=== PATIENT | male | born 1930 | race Caucasian/White ===

== ENCOUNTER 2017-02-22 09:46 | Inpatient (IN) ==
--- NOTE | 2017-02-22 10:52 | CT Report ---
CT of the head without contrast. Indication: Fall, injury, and pain. Altered level of consciousness. Comparison: November 15, 2015. There is calcific plaque present within the intracranial internal carotid arteries and the vertebral arteries. There is generalized prominence of the ventricles and sulci consistent with atrophy of aging. There is a cavum septum lucidum. Within the right middle cranial fossa, there is a prominent area of arachnoid cyst or cystic encephalomalacia, which is similar to the previous exam. There is no mass effect or midline shift. There is no evidence of acute hemorrhage. No cortical infarcts are seen at this time. Within the white matter of both cerebral hemispheres, there are areas of low density consistent with chronic microvascular ischemia. 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 There are small lacunar infarcts in the left basal ganglia, stable. The osseous structures are diffusely demineralized. The calvarium is intact. The mastoid air cells are clear. Mild mucosal thickening and mucus debris within the paranasal sinuses. Impression: No evidence of acute intracranial injury. Chronic atrophy and ischemic change, stable. 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 The CT exam was performed using one or more of the following dose reduction techniques: Automated exposure control, adjustment of the mA and/or kV according to patient size, or use of iterative reconstruction technique. PROCEDURE INTERPRETED AT [facility] DEPARTMENT OF RADIOLOGY Final Report Signed by: Dr. Naomi Bourne
--- NOTE | 2017-02-22 10:55 | CT Report ---
History: Neck pain after fall Date: 02/22/2017 Study: CT cervical spine without contrast Comparison exam: January 08, 2014 CT cervical spine Thin spiral CT sections were obtained through the cervical spine without IV contrast. Multiplanar reconstruction images are also evaluated. This CT exam was performed using one or more the following dose reduction techniques: Automated exposure control, adjustment of the MA and/or KV according to patient size, or use of iterative reconstruction technique. There is no acute fracture, subluxation, or prevertebral soft tissue swelling. There is scattered mild to moderate anterior spondylosis of the spine. The cervical disc spaces are fairly well-maintained. There is scattered facet hypertrophy. There is mild spinal stenosis at C3-C4 related to mild posterior bulging disc and osteophyte; there is mild to moderate bony neural foraminal narrowing related to uncovertebral and facet hypertrophy. There is mild to moderate right greater than left neural foraminal narrowing at C4-C5 related to uncovertebral and facet hypertrophy. There is moderate right and mild left neural foraminal narrowing at C5-C6 related to uncovertebral and facet hypertrophy. There is mild neural foraminal narrowing bilaterally at C6-C7 related to uncovertebral and facet hypertrophy. There is no cervical level soft tissue mass identified. Impression: No fracture. Degenerative changes. Little overall change from the previous study PROCEDURE INTERPRETED AT [facility] DEPARTMENT OF RADIOLOGY Final Report Signed by: Dr. Moon Murphy
--- NOTE | 2017-02-22 10:57 | CT Report ---
CT of the lumbar spine without contrast. Indication: Back pain. Fall, injury, and pain. Axial images were obtained with sagittal and coronal 2-D reconstructions. There is atherosclerotic calcification within a normal caliber abdominal aorta, extending into the origins of the SMA, both renal arteries, and both common and internal iliac arteries. Suspected cysts within the left kidney. Suspected right nephrolithiasis. Diverticulosis. The osseous structures are severely demineralized. There is vacuum disc phenomenon, degenerative endplate change, and anterior and posterior osteophyte formation at L5-S1, with prominent neural foraminal narrowing. At L4-L5, there is posterior lateral osteophyte formation resulting in moderate neural foraminal narrowing. There are chronic superior endplate compression fractures, involving L1 and L2, which are similar in configuration to a previous CT of the abdomen and pelvis dated September 09, 2013. No lytic or blastic lesion. Multilevel facet arthropathy. Impression: No evidence of acute lumbar spine fracture. Chronic stable superior endplate compression fractures of L1 and L2. The CT exam was performed using one or more of the following dose reduction techniques: Automated exposure control, adjustment of the mA and/or kV according to patient size, or use of iterative reconstruction technique. PROCEDURE INTERPRETED AT [facility] DEPARTMENT OF RADIOLOGY Final Report Signed by: Dr. Naomi Bourne
--- NOTE | 2017-02-22 10:59 | CT Report ---
History: Back pain after fall Date: 02/22/2017 Study: CT thoracic spine without contrast Comparison exam: No previous thoracic spine CT available Thin spiral CT sections were obtained through the thoracic spine without IV contrast. Multiplanar reconstruction images are also evaluated. This CT exam was performed using one or more the following dose reduction techniques: Automated exposure control, adjustment of the MA and/or KV according to patient size, or use of iterative reconstruction technique. There is a Schmorl's nodes superiorly at T5 with mild central depression of the superior endplate, presumably chronic. No definite acute thoracic fracture is seen. There is no subluxation. There is scattered moderate spondylosis with suspected element of DISH. There is no focal lytic or blastic lesion. There is no gross disc extrusion or high-grade spinal stenosis. Impression: Chronic Schmorl's nodes superiorly at T5. No definite acute fracture. Suspected element of DISH PROCEDURE INTERPRETED AT [facility] DEPARTMENT OF RADIOLOGY Final Report Signed by: Dr. Moon Murphy
--- NOTE | 2017-02-22 11:07 | XRay Report ---
History: Right hip pain after fall Date: 02/22/2017 Study: Right hip 2 views to include pelvis Comparison exam: No previous similar available No acute fracture seen by this exam. The right hip is well conjugated. There is mild osteophyte formation of the right hip, though the joint space is well-maintained. There is an old healed fracture of the left hip status post ORIF with compression screw and plate. There is osteopenia. Impression: No acute fracture. Mild osteoarthritis right hip. Old healed left hip fracture status post previous ORIF PROCEDURE INTERPRETED AT [facility] DEPARTMENT OF RADIOLOGY Final Report Signed by: Dr. Moon Murphy
--- NOTE | 2017-02-22 11:10 | XRay Report ---
History: Posterior rib pain on the right after fall Date: 02/22/2017 Study: PA chest with AP and oblique views right RIBS Comparison exam: Chest x-ray November 15, 2015 There is no pneumothorax or gross pleural effusion. There is old fracture deformity of the anterolateral aspects of the right fourth and fifth ribs. No definite acute rib fractures seen on the right. There is osteopenia. There is mild to moderate thoracic spondylosis. The cardiac silhouette is not enlarged. There is mild ectasia and tortuosity of the thoracic aorta without obvious aneurysm. The lungs are well-expanded and clear. Impression: No acute right rib fracture. Multiple old healed rib fractures on the right. No acute process otherwise PROCEDURE INTERPRETED AT [facility] DEPARTMENT OF RADIOLOGY Final Report Signed by: Dr. Moon Murphy
--- NOTE | 2017-02-22 12:20 | CT Report ---
History: Right hip pain after fall Date: 02/22/2017 Study: CT right hip without contrast Comparison exam: Right hip x-ray 02/22/[address] sections were obtained through the right hip without IV contrast. Multiplanar reconstruction images are also evaluated. Total DLP measures 282.3 mGy*cm. This CT exam was performed using one or more the following dose reduction techniques: Automated exposure control, adjustment of the MA and/or KV according to patient size, or use of iterative reconstruction technique. There is a nondisplaced acute comminuted fracture of the greater trochanter of the right hip with near-anatomic alignment. No fracture plane traverses the femoral neck. There is mild joint space narrowing and osteophyte formation of the right hip joint. There is no significant abnormality otherwise. Impression: Acute nondisplaced comminuted fracture greater trochanter right hip PROCEDURE INTERPRETED AT [facility] DEPARTMENT OF RADIOLOGY Final Report Signed by: Dr. Moon Murphy
[2017-02-22 12:43] LABS: Basophils % 0.4 % (0.0-0.8); Eosinophils # 0.2 10*3/uL (0.0-0.87); Eosinophils % 2.5 % (0.00-10.9); Hematocrit 40.3 VOL% (42.0-52.0); Immature Granulocytes % 0.3 %; Immature Granulocytes Absolute 0.02 #; Lymphocytes # 1.3 10*3/uL (1.4-4.0); Lymphocytes % 17.6 % (21.2-54.2); Mean Corpuscular HGB Conc 34.7 GM/DL (32-36); Mean Corpuscular Hemoglobin 33 PG (27-34); Mean Corpuscular Volume 93.7 FL (87-102); Mean Platelet Volume 12.2 FL (9.6-12.0); Monocytes # 0.8 10*3/uL (0.11-0.8); Monocytes % 11.2 % (1.7-12.7); Neutrophils # 5.1 10*3/uL (1.4-7.4); Platelet Count 66 T/CUMM (130-400); Red Cell Distribution Width 13.7 % (9.3-17.3); White Blood Count 7.5 T/CUMM (4-12)
[2017-02-22] MEDS ORDERED: ONDANSETRON 4 MG/2 ML VIAL IV PRN (12:43)
--- NOTE | 2017-02-22 12:48 | EKG Report ---
Stationary ECG Study [facility] Test Date: 02/22/2017 12:46:31 PM Pat Name: NEDRA LLOYD Department: Room: Gender: M Toy Stuffer: : 1930 Requested by: Juliana King Order Number: [id number] Reading MD: GLORIA TEJEDA Intervals [place] Rate: 78 P: 999 AK: 0 QRS: 18 QRSD: 89 T: 51 QT: 396 QTc: 430 Interpretive Statements ATRIAL FIBRILLATION NONSPECIFIC T-WAVE ABNORMALITY Electronically Signed On 02-23-17 17:12:41 CDT by GLORIA TEJEDA [email or web address]
--- NOTE | 2017-02-22 13:06 | Emergency Department Note ---
Arrival - Arrival Chief Complaint: Fall Stated Complaint: fall hip pain ED Nursing Triage Note: SLIPPED AND FELL THIS AM APPROX 0630-C/O RIGHT HIP PAIN- NO OBVIOUS DEFORMITY-GOOD DISTAL PULSES-CAP REFILL BRISK-NEURO VASC IBTACT- DENIES HITTYING HEAD-DENIES LOC--SKIN TEAR NOTED TO RIGHT ELBOW-A/O X3 NAD Mode of Arrival: Stretcher Source: Patient, Family Time Seen by Provider: 02/22/17 09:59 - History of Present Illness HPI Narrative: 86 y/o white male presents to the ER per EMS complaining of right hip pain and back pain. States he tripped and fell this morning. Patient denies LOC. Reports pain with movement and weight-bearing. Also complaining of back pain. Past medical history significant for dementia, DM, HTN, GERD, and vertigo. Primary Care Physician: Dr. Colunga. Onset (ago): hour(s) (3) Severity: mild Quality: aching Allergies/Adverse Reactions: Allergies Allergy/AdvReac Type Severity Reaction Status Date / Time codeine Allergy Unknown/Unable Verified 12/31/14 13:18 to obtain Home Medications: Home Medications Medication Instructions Recorded Confirmed Type Melatonin/Pyridoxine HCl (B6) 1 each PO BEDTIME 12/31/14 02/22/17 History [Melatonin 10 mg Tablet] Multivitamin [One Daily] 1 each PO DAILY 12/31/14 02/22/17 History Pantoprazole Tab [Protonix Tab] 40 mg PO BID #30 tablet 01/06/15 02/22/17 Rx Aspirin 81 mg PO QPM 02/22/17 02/22/17 History Carbidopa/Levodopa 1 tablet PO TID 02/22/17 02/22/17 History [Carbidopa-Levodopa 25-100 Tab] Donepezil [Aricept] 10 mg PO BID 02/22/17 02/22/17 History Insulin NPH/Regular 70/30 [HumuLIN 32 unit SUBCUT QAM 02/22/17 02/22/17 History 70/30] Insulin NPH/Regular 70/30 [HumuLIN 40 unit SUBCUT QPM 02/22/17 02/22/17 History 70/30] Memantine [Namenda] 10 mg PO BID 02/22/17 02/22/17 History Metoprolol Succinate 25 mg PO DAILY PRN 02/22/17 02/22/17 History Review of System - Review of System 12 point system: reviewed and no additional remarkable complaints except as stated - Review of System Musculoskeletal: Present: back pain, other (right hip pain ) Medical,Surgical,& Family Hx - Medical History Neurology: History of: Dementia Genitourinary: History of: Kidney Stones Gastrointestinal: History of: Liver Problems (fatty liver) - Surgical History Cardiac Surgeries: Sugical HX of: Cardiac Catheterization (30 years ago) - Family History Family History: Reports;: Family Cancer (brother), Family Heart Disease (dad brother) - Social History Smoking Status: Never smoker Exam Vital Signs: Vital Signs Temperature 99.6 F 02/22/17 16:00 Pulse Rate 82 02/22/17 16:00 Respiratory Rate 18 02/22/17 16:00 Blood Pressure 129/68 02/22/17 16:00 O2 Sat by Pulse Oximetry 92 L 02/22/17 16:00 - General General appearance: alert, in no apparent distress - ENT ENT exam: Present: normal exam, normal oropharynx, mucous membranes moist - Chest Chest inspection: Present: normal inspection - Respiratory Respiratory exam: Present: normal lung sounds bilaterally - Cardiovascular Cardiovascular exam: Present: regular rate, normal rhythm, normal heart sounds - Abdominal Exam Abdominal exam: Present: soft, normal bowel sounds. Absent: tenderness - Extremities Exam Extremities exam: Present: full ROM - Expanded Lower Right Lower Hip/Pelvis exam: Present: tenderness (diffuse TTP to right hip; painful ROM of right hip ), pelvis stable. Absent: swelling, abrasion, erythema, internal rotation, shortening Neurovascular/Tendon exam: Present: normal capillary refill. Absent: pulse deficit, foot drop Gait: observed and limited by pain - Back Exam Back exam: Present: vertebral tenderness (cervicle, thoracic, and lumbar spine ) - Neurological Exam Neurological exam: Present: alert, oriented X3, other (DTR's intact bilaterally ) - Psychiatric Psychiatric exam: Present: normal affect, normal mood - Skin Skin exam: Present: warm, dry Course - Consultations Consultation #1: Hospitalist Time: 12:45 (Discussed with Hospitalist. Will admit. ) Results - Labs CBC & BMP: 02/22/17 12:29 02/22/17 12:29 Lab Results: I have reviewed the patients labs - Diagnostic Findings Procedure: Chest x-ray: image reviewed by me, report reviewed by me (no acute abnormality ), CT: image reviewed by me, report reviewed by me (Head, cervicle, thoracic, and lumbar spine: no acute fx. CT right hip: greater Trochanter fracture), X-ray: image reviewed by me, report reviewed by me (right hip: no acute fx ) Disposition Clinical Impression: Greater trochanter fracture, Fall Case discussed with: patient Disposition: Still a Patient Condition: Stable
[2017-02-22 13:10] LABS: Albumin 3.1 G/DL (3.4-5.0); Bilirubin,Total 1.9 MG/DL (0.2-1.0); Calcium 8.8 MG/DL (8.5-10.1); Osmolality,Calculated 282.3 MOS/KG (273-304); Total Protein 6.6 G/DL (6.4-8.3)
[2017-02-22 13:19] LABS: INR 1.2; PT Patient Result 12.9 SECS; Partial Thromboplastin Time 28.1 SECS (0-40)
--- NOTE | 2017-02-22 13:25 | Hospitalist History & Physical ---
<Lina Corcoranda - Last Filed: 02/22/17 13:15> Assessment and Plan (1) Greater trochanter fracture Status: Acute Assessment and plan: CT right hip without contrast significant for acute nondisplaced comminuted fracture greater trochanter right hip. Orthopedic consultation has been requested. We will order preop workup and preparations for surgical intervention. Current Visit: Yes (2) Type 2 diabetes mellitus Status: Acute Assessment and plan: We will order hemoglobin A1c and start Accu-Cheks with sliding scale coverage. Current Visit: No History of Present Illness Chief complaint: Right hip pain History of present illness: This is a pleasantly confused 86-year-old male that presented to the [facility] this morning via EMS for the evaluation of right hip pain. The patient has a medical history significant for dementia, fatty liver disease, left hip fracture, diabetes mellitus, hypertension, gastroesophageal reflux disease, and vertigo. Patient has a surgical history significant for cardiac catheterization and surgical repair of a fracture involving his left hip. Patient reported that he got out of bed and attempted to walk down the n[place]ira. Apparently, the patient made it to the doorway where he tripped and fell. His who was present at bedside reported that the patient generally does not get up early in the morning however , she was unsure of what prompted him to get off this morning. She reported that the patient suddenly jumped up and was observed seemingly running down the hallway ultimately falling in the doorway on his right side. She called for her family who live nearby. They summoned EMS in route and the patient was subsequently transferred to [facility] for further evaluation. The patient was assessed at the time of ED presentation. The patient was noted to be hypertensive with a blood pressure noted at 185/99. In addition the patient reported generalized pain and discomfort to his lower back. Right hip x -ray reported no acute fracture, mild osteoarthritis of the right hip, old healed left hip fracture status post previous open reduction with internal fixation. CT cervical spine without contrast was unremarkable for the presence of fracture however degenerative changes were noted. CT lumbar spine was unremarkable for any evidence of acute lumbar spine fracture however, stable superior endplate compression fractures of L1 and L2 were noted. CT thoracic spine without contrast reported chronic Schmorl's nodes superiorly at T5 and no definite acute fracture was noted however, there was a suspected element of DISH. X-ray of the right ribs with PA chest is unremarkable for the presence of any acute right rib fractures however, multiple old healed rib fractures on the right were noted. CT head without contrast was essentially unremarkable for any evidence of acute intracranial injury. Chronic atrophy and ischemic change and the presence of an arachnoid cyst versus cystic encephalomalacia of the right temporal lobe was noted. CT right hip without contrast was remarkable for the presence of an acute nondisplaced comminuted fracture of the greater trochanter involving the right hip. After brief discussion with TONG Geronimo and Dr. Guerra, the patient will be admitted to the hospitalist service for continuation of care. Dr. Primo Hayden , orthopedic surgeon has been requested by the family to assist during the clinical encounter. Home medications have been reviewed and reconciled. CODE STATUS discussed; patient is a FULL CODE. Home Medications Medication Instructions Recorded Confirmed Type Melatonin/Pyridoxine HCl (B6) 1 each PO BEDTIME 12/31/14 11/15/15 History [Melatonin 10 mg Tablet] Multivitamin [One Daily] 1 each PO DAILY 12/31/14 11/15/15 History metFORMIN [Glucophage] 500 mg PO BID W/MEALS 12/31/14 11/15/15 History Meclizine [Antivert] 25 mg PO TID PRN #1 tablet 01/06/15 11/15/15 Rx Metoprolol Succinate Xl [Toprol Xl] 100 mg PO DAILY #1 tablet 01/06/15 11/15/15 Rx Pantoprazole Tab [Protonix Tab] 40 mg PO BID #30 tablet 01/06/15 11/15/15 Rx glyBURIDE [Diabeta] 5 mg PO BID W/MEALS #60 tablet 01/06/15 11/15/15 Rx Allergies Allergy/AdvReac Type Severity Reaction Status Date / Time codeine Allergy Unknown/Unable Verified 12/31/14 13:18 to obtain Medical,Surgical,& Family Hx - Medical History Neurology: History of: Dementia Genitourinary: History of: Kidney Stones Gastrointestinal: History of: Liver Problems (fatty liver) - Surgical History Cardiac Surgeries: Sugical HX of: Cardiac Catheterization (30 years ago) - Family History Family History: Reports;: Family Cancer (brother), Family Heart Disease (dad brother) - Social History Smoking Status: Never smoker 12 point system: reviewed and no additional remarkable complaints except as stated Exam - Constitutional Vitals: Period Temp Pulse Resp BP Sys/Bar Pulse Ox Last 24 Hr 98.0 F 76-78 20-20 180-185/82-99 98 General appearance: normal weight, no acute distress - Head Head exam: Present: normal inspection, normocephalic, atraumatic - Eye Eye exam: Present: EOMI Pupils: Present: MIGUEL A. Absent: normal accommodation - ENT ENT exam: Present: normal exam, normal external ear exam, normal oropharynx - Neck Neck exam: Present: normal inspection. Absent: lymphadenopathy, meningismus, thyromegaly - Respiratory Respiratory exam: Present: clear to auscultation bilaterally. Absent: rales, rhonchi, stridor, wheezes - Cardiovascular Cardiovascular exam: Present: regular rate and rhythm. Absent: carotid bruit, diastolic murmur, gallop, JVD, rubs, systolic murmur - GI/Abdominal GI/Abdominal exam: Present: normal bowel sounds, soft - Extremities Exam Extremities exam: Present: full ROM. Absent: edema - Expanded Right Lower Hip exam: Present: normal inspection, tenderness. Absent: deformity Upper Leg exam: Present: normal inspection, tenderness. Absent: deformity Knee exam: Present: normal inspection, full ROM Lower leg exam: Present: normal inspection Ankle exam: Present: normal inspection Foot/Toe exam: Present: normal inspection Neuro vascular tendon exam: Present: no vascular compromise Gait: Present: not tested/not observed - Back Exam Back exam: Present: CVA tenderness (R) - Neurological Exam Neurological exam: Present: alert, altered - Psychiatric Psychiatric exam: Present: normal affect, normal mood - Skin Skin exam: Present: normal color, warm, dry Results - Labs CBC & BMP: 02/22/17 12:29 02/22/17 12:29 Lab Results: I have reviewed the past 24 hour labs <Michael Guerra - Last Filed: 02/22/17 14:45> Assessment and Plan (1) Greater trochanter fracture Status: Acute Assessment and plan: Impression: 1. Greater trochanteric fracture right hip 2. 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 Possible Parkinson's disease; could be a manifestation of #3 5. Thrombocytopenia, etiology not known. This appears to be chronic and apparently clinically insignificant Plan: Orthopedic consultation. Glucose control. He will be at higher than average risk for postop delirium due to his underlying dementia. His revised cardiac risk index is probably 1. This note was completed using [employer] voice recognition software. There may be fresh meat grader errors as a result. Current Visit: Yes Qualifiers: Encounter type: initial encounter Fracture type: closed Fracture alignment: nondisplaced Laterality: right Qualified Code(s): S72.114A - Nondisplaced fracture of greater trochanter of right femur, initial encounter for closed fracture History of Present Illness History of present illness: Mr. Garrison is a 86 year old male History is as above. The reports that the patient was diagnosed with Lewy body dementia about 7 years ago after an evaluation at the [facility] about 4 years ago, he underwent cholecystectomy, followed by another hospitalization for kidney stones which were removed and lithotripsy. After that, he sustained a hip fracture that was repaired without incident. There was no perioperative delirium as far as the family can recall. He has had a cardiac evaluation in the past few years, with a normal echocardiogram being performed. He has been diabetic ever since the hip fracture 3 years ago. He was started on insulin 1 year ago by his clinician at the [place]. There is no history of lung disease. He is never had a myocardial infarction or congestive heart failure as far as the family knows. There is no history of any blood dyscrasia. 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 Exam - Constitutional Vitals: Period Temp Pulse Resp BP Sys/Bar Pulse Ox Last 24 Hr 98.0 F 76-80 20-20 108-185/81-99 96-98 Examination is notable for a soft cardiac murmur at the left sternal border. His lungs are clear. Abdomen is soft and nontender without any mass. He is awake and conversant, but confused regarding details of the events surrounding the fall. He exhibits a resting parkinsonian type tremor. Results - Labs CBC & BMP: 02/22/17 12:29 02/22/17 12:29
[2017-02-22] MEDS ORDERED: GLUCAGON 1 MG VIAL IM PRN (13:30)
[2017-02-22] MEDS ORDERED: DEXTROSE 50% 25 GM/50 ML VIAL IV PRN (13:30)
[2017-02-22] MEDS: SODIUM CHLORIDE 0.9% 1,000 ML IV SCH (14:40)
[2017-02-22] MEDS: MORPHINE 2 MG/1 ML SYRINGE IV PRN ×2 (16:14→22:25)
[2017-02-22] MEDS: INSULIN REGULAR 100 UNIT/ML SUBCUT SCH ×2 (16:48→22:21)
--- NOTE | 2017-02-22 18:03 | Orthopedic Consult Note ---
History of Present Illness Chief complaint: Greater trochanter fracture right hip History of present illness: Mr. Garrison is a 86 year old male admitted to the hospitalist service for right hip fracture reportedly fell at home earlier today. X-ray studies were inconclusive CT scan confirming the fracture localized to the greater trochanter. He has been admitted and orthopedic consultation is been obtained him here for evaluation regarding his right hip injury no other complaints Examination reveals no pain with gentle range of motion about the left lower extremity are but either upper extremity has localized point tenderness about the right hip trochanteric region with palpation also some guarded and moderate pain with gentle range of motion including flexion to about 40. There is no pain or crepitation distally about the about the femur need to febrile ankle X-rays reveal no bony changes about the trochanter difficult to include or exclude a fracture I do not see an obvious intertrigo femoral neck fracture. CT scan confirms the fracture localized to the greater trochanter tip I do not see an obvious fracture through the intertrochanteric region or the neck. Impression: Greater trochanter fracture right hip Plan: I discussed with the family the diagnosis this can be managed nonoperatively will get therapy to work on mobilizing with a walker touchdown weightbearing using it for balance will slowly advance his discomfort will allow if he is to fall then he could propagate the through the intertrochanteric region. Will follow thank you for the consultation Home Medications Medication Instructions Recorded Confirmed Type Melatonin/Pyridoxine HCl (B6) 1 each PO BEDTIME 12/31/14 02/22/17 History [Melatonin 10 mg Tablet] Multivitamin [One Daily] 1 each PO DAILY 12/31/14 02/22/17 History Pantoprazole Tab [Protonix Tab] 40 mg PO BID #30 tablet 01/06/15 02/22/17 Rx Aspirin 81 mg PO QPM 02/22/17 02/22/17 History Carbidopa/Levodopa 1 tablet PO TID 02/22/17 02/22/17 History [Carbidopa-Levodopa 25-100 Tab] Donepezil [Aricept] 10 mg PO BID 02/22/17 02/22/17 History Insulin NPH/Regular 70/30 [HumuLIN 32 unit SUBCUT QAM 02/22/17 02/22/17 History 70/30] Insulin NPH/Regular 70/30 [HumuLIN 40 unit SUBCUT QPM 02/22/17 02/22/17 History 70/30] Memantine [Namenda] 10 mg PO BID 02/22/17 02/22/17 History Metoprolol Succinate 25 mg PO DAILY PRN 02/22/17 02/22/17 History Allergies Allergy/AdvReac Type Severity Reaction Status Date / Time codeine Allergy Unknown/Unable Verified 12/31/14 13:18 to obtain Medical,Surgical,& Family Hx - Medical History Neurology: History of: Dementia Endocrine: History of: Diabetes Mellitus (IDDM) Genitourinary: History of: Kidney Stones Gastrointestinal: History of: Liver Problems (fatty liver) - Surgical History Cardiac Surgeries: Sugical HX of: Cardiac Catheterization (30 years ago) Orthopedic Surgeries: Surgical HX of;: Orthopedic Surgery (LT HIP FRACTURE), Spinal Surgery (NECK) - Family History Family History: Reports;: Family Cancer (brother), Family Heart Disease (dad brother) - Social History Smoking Status: Never smoker Frequency of Alcohol Use: None Type of Drug Use: None Exam - Constitutional Vitals: Period Temp Pulse Resp BP Sys/Bar Pulse Ox Last 24 Hr 98.0 F-99.6 F 76-82 18-20 108-185/68-99 92-98 Results - Labs CBC & BMP: 02/22/17 12:29 02/22/17 12:29
[2017-02-22 23:39] LABS: Apearance,Urine CLEAR (Clear); Bilirubin,Urine Negative (Negative); Blood, Urine Large mg/dL (Negative); Glucose,Urine (UA) Negative (Negative); Ketones,Urine Negative (Negative); Mucus,Urine Occasional /LPF (Occasional); Nitrite,Urine Negative (Negative); Protein,Urine 30 MG/DL; RBC,Urine 322 /HPF (0-4); Squamous Epithelial Cell,Urine Occasional /HPF (0-10); Urine Color Amber (Yellow); Urine Specific Gravity 1.016 (1.001-1.035)
[2017-02-23] MEDS: SODIUM CHLORIDE 0.9% 1,000 ML IV SCH (03:52)
[2017-02-23 06:27] LABS: Basophils % 0.6 % (0.0-0.8); Eosinophils # 0.4 10*3/uL (0.0-0.87); Eosinophils % 5.2 % (0.00-10.9); Hematocrit 37.2 VOL% (42.0-52.0); Hemoglobin 12.7 GM/DL (14.0-18.0); Immature Granulocytes % 0.1 %; Immature Granulocytes Absolute 0.01 #; Lymphocytes # 1.9 10*3/uL (1.4-4.0); Lymphocytes % 28.1 % (21.2-54.2); Mean Corpuscular HGB Conc 34.1 GM/DL (32-36); Mean Corpuscular Hemoglobin 32 PG (27-34); Mean Corpuscular Volume 93.9 FL (87-102); Mean Platelet Volume 12.1 FL (9.6-12.0); Monocytes % 14.6 % (1.7-12.7); Neutrophils # 3.5 10*3/uL (1.4-7.4); Neutrophils % 51.4 % (38.7-73.9); Red Blood Count 3.96 MC/CUMM (3.8-5.5); Red Cell Distribution Width 13.8 % (9.3-17.3); White Blood Count 6.7 T/CUMM (4-12)
[2017-02-23 06:36] LABS: Platelet Count 70 T/CUMM (130-400)
[2017-02-23 06:48] LABS: Hypochromasia 1+; Platelet Estimate Decreased
[2017-02-23 07:02] LABS: Albumin 2.9 G/DL (3.4-5.0); Bilirubin,Total 3.4 MG/DL (0.2-1.0); Calcium 8.4 MG/DL (8.5-10.1); Osmolality,Calculated 280.4 MOS/KG (273-304); Potassium 3.9 MMOL/L (3.5-5.1); Total Protein 6.1 G/DL (6.4-8.3)
--- NOTE | 2017-02-23 09:09 | Hospitalist Progress Note ---
Assessment and Plan (1) Greater trochanter fracture Status: Acute Assessment and plan: Impression: 1. Greater trochanteric fracture right hip 2. 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 Possible Parkinson's disease; could be a manifestation of #3 5. Thrombocytopenia, chronic and apparently clinically insignificant Plan: PT evaluation regarding disposition. He may be able to go home with PT or he may need swing bed. We will await their recommendations This note was completed using [employer] voice recognition software. There may be microbiology lab assistant errors as a result. Current Visit: Yes Qualifiers: Encounter type: initial encounter Fracture type: closed Fracture alignment: nondisplaced Laterality: right Qualified Code(s): S72.114A - Nondisplaced fracture of greater trochanter of right femur, initial encounter for closed fracture Hospitalist: Subjective Interval history: Follow-up greater trochanter fracture. Orthopedics has seen the patient, and does not think that he needs operative management. I have consulted physical therapy. The patient is having some trouble with the compression devices and the IV. He has been agitated all night due to underlying dementia. We will await PT evaluation regarding the need for swing bed versus home health with PT. Exam - Constitutional Vitals: Period Temp Pulse Resp BP Sys/Bar Pulse Ox Last 24 Hr 97.9 F-100.3 F 74-82 16-20 108-185/68-99 91-98 Vital signs are noted above. Heart is regular with distant tones and no murmur. Lungs are clear with no rales or wheezes. Abdomen is soft with no mass. He is currently asleep. Results - Labs CBC & BMP: 02/23/17 06:04 02/23/17 06:04 Lab Results: I have reviewed the past 24 hour labs (Thrombocytopenia persists. This is not new.)
[2017-02-23] MEDS: INSULIN REGULAR 100 UNIT/ML SUBCUT SCH ×4 (09:25→21:37)
--- NOTE | 2017-02-23 13:15 | Orthopedic Progress Note ---
Orthopedics - Subjective Interval history: buzz pt discussed sb soon Exam - Constitutional Vitals: Period Temp Pulse Resp BP Sys/Bar Pulse Ox Last 24 Hr 97.9 F-100.3 F 73-82 16-18 117-156/68-88 91-95 Results - Labs CBC & BMP: 02/23/17 06:04 02/23/17 06:04
[2017-02-24] MEDS: INSULIN REGULAR 100 UNIT/ML SUBCUT SCH ×4 (08:20→21:01)
--- NOTE | 2017-02-24 08:43 | Orthopedic Progress Note ---
Orthopedics - Subjective Interval history: Had a better night rested comfortably less pain today tolerating general range of motion. Discussed with his mobilizing touchdown to partial weightbearing most likely here to the weekend will not be excepted to swing bed until Monday. Exam - Constitutional Vitals: Period Temp Pulse Resp BP Sys/Bar Pulse Ox Last 24 Hr 98.0 F-98.8 F 69-74 16-18 129-163/70-85 92-100 Results - Labs CBC & BMP: 02/23/17 06:04 02/23/17 06:04
--- NOTE | 2017-02-24 09:23 | Hospitalist Progress Note ---
Assessment and Plan (1) Greater trochanter fracture Status: Acute Assessment and plan: Impression: 1. Greater trochanteric fracture right hip 2. 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 Possible Parkinson's disease; could be a manifestation of #3 5. Thrombocytopenia, chronic and apparently clinically insignificant Plan: Await transfer to swing bed This note was completed using [employer] voice recognition software. There may be well site drilling engineer errors as a result. Current Visit: Yes Qualifiers: Encounter type: initial encounter Fracture type: closed Fracture alignment: nondisplaced Laterality: right Qualified Code(s): S72.114A - Nondisplaced fracture of greater trochanter of right femur, initial encounter for closed fracture Hospitalist: Subjective Interval history: Follow-up greater trochanter fracture and dementia with Lewy bodies. says that the patient had a better night last night. His IV has been removed. His third midnight will be tonight, and we are waiting on determination of swing bed eligibility and transfer. Exam - Constitutional Vitals: Period Temp Pulse Resp BP Sys/Bar Pulse Ox Last 24 Hr 98.0 F-98.8 F 69-74 16-18 129-163/70-85 92-100 Vital signs are noted above. Heart is regular with a soft systolic murmur. Chest is clear. Abdomen is soft and nontender. He is awake and conversant, although obviously confused. Results - Labs CBC & BMP: 02/23/17 06:04 02/23/17 06:04
[2017-02-25] MEDS: INSULIN REGULAR 100 UNIT/ML SUBCUT SCH ×2 (09:03→12:27)
--- NOTE | 2017-02-25 10:01 | Orthopedic Progress Note ---
Orthopedics - Subjective Interval history: Mr. Garrison is doing well. Alert, oriented, stable. Awaiting discharge and swing bed. Probably will be discharged Monday when bed available. Exam - Constitutional Vitals: Period Temp Pulse Resp BP Sys/Bar Pulse Ox Last 24 Hr 97.5 F-98.7 F 71-76 18-18 113-150/55-84 90-95 Results - Labs CBC & BMP: 02/23/17 06:04 02/23/17 06:04 Specialty Discharge - Follow Up or Referrals
[2017-02-25 12:07] VITALS: BP 138/73
--- NOTE | 2017-02-25 14:12 | Discharge Summary ---
Hospital Course - Hospital Course Hospital Course: 86 yo Avinash presented to the [facility] via EMS for the evaluation of right hip pain. The patient has a medical history significant for dementia, fatty liver disease, left hip fracture , diabetes mellitus, hypertension, gastroesophageal reflux disease, and vertigo. Patient has a surgical history significant for cardiac catheterization and surgical repair of a fracture involving his left hip. Patient reported that he got out of bed and attempted to walk down the [place]. Apparently, the patient made it to the doorway where he tripped and fell. His who was present at bedside reported that the patient generally does not get up early in the morning however, she was unsure of what prompted him to get off this morning. She reported that the patient suddenly jumped up and was observed seemingly running down the hallway ultimately falling in the doorway on his right side. She called for her family who live nearby. They summoned EMS in route and the patient was subsequently transferred to [facility] for further evaluation. The patient was assessed at the time of ED presentation. The patient was noted to be hypertensive with a blood pressure noted at 185/99. In addition the patient reported generalized pain and discomfort to his lower back. Right hip x -ray reported no acute fracture, mild osteoarthritis of the right hip, old healed left hip fracture status post previous open reduction with internal fixation. CT cervical spine without contrast was unremarkable for the presence of fracture however degenerative changes were noted. CT lumbar spine was unremarkable for any evidence of acute lumbar spine fracture however, stable superior endplate compression fractures of L1 and L2 were noted. CT thoracic spine without contrast reported chronic Schmorl's nodes superiorly at T5 and no definite acute fracture was noted however, there was a suspected element of DISH. X-ray of the right ribs with PA chest is unremarkable for the presence of any acute right rib fractures however, multiple old healed rib fractures on the right were noted. CT head without contrast was essentially unremarkable for any evidence of acute intracranial injury. Chronic atrophy and ischemic change and the presence of an arachnoid cyst versus cystic encephalomalacia of the right temporal lobe was noted. CT right hip without contrast was remarkable for the presence of an acute nondisplaced comminuted fracture of the greater trochanter involving the right hip. Patient was admitted to the hospital service and orthopedics were consulted. She was seen by Dr. Heller and decision was made to manage nonoperatively and initiate ambulation with a walker. His pain is quite well controlled and is not requiring any supplemental pain medication. He has a bed today. His declined narcotics for pain, and stated that he is not in any sort of pain. He is being discharged to swing bed in improved and stable condition. - Time spent with patient Time with patient DS: Less than 30 minutes Diagnosis - Discharge Diagnosis (1) Greater trochanter fracture Status: Acute Specialty Discharge - Follow Up or Referrals Discharge Plan - Discharge Data Disposition: Swing Bed, Hos Based, [facility] Condition at Discharge: Stable Discharge Diet: diabetic diet, low salt diet Activity: ambulate only with your walker, as per physical therapy Weight Bearing at Discharge: full weight bearing - Discharge Medications New Insulin Regular [HumuLIN R] See Protocol SUBCUT ACHS unit Continue Multivitamin [One Daily] 1 each PO DAILY Melatonin/Pyridoxine HCl (B6) [Melatonin 10 mg Tablet] 1 each PO BEDTIME Pantoprazole Tab [Protonix Tab] 40 mg PO BID #30 tablet Carbidopa/Levodopa [Carbidopa-Levodopa 25-100 Tab] 1 tablet PO TID Donepezil [Aricept] 10 mg PO BID Metoprolol Succinate 25 mg PO DAILY PRN PRN Reason: Blood Pressure-Increased Memantine [Namenda] 10 mg PO BID Insulin NPH/Regular 70/30 [HumuLIN 70/30] 40 unit SUBCUT QPM Insulin NPH/Regular 70/30 [HumuLIN 70/30] 32 unit SUBCUT QAM Aspirin 81 mg PO QPM - Follow Up or Referral - Forms/Instructions Instructions: Hip Fracture (GEN) Exam - Constitutional Vitals: Period Temp Pulse Resp BP Sys/Bar Pulse Ox Last 24 Hr 98.1 F-98.7 F 71-76 18-18 113-150/55-84 90-95 Exam: General: No Acute Distress HEENT: Normocephalic, atraumatic, Extra ocular movements intact Neck: Supple, No JVD Chest: Clear to auscultation B/L CV: S1 + S2 audible without murmur, gallop or rub Abd: soft, NT, Non-distended, BS + Ext: No edema Skin: No purpura, bruising or rash Rheumatologic: No Joint deformities Neurologic: Strength 5/5 all extremities, no gross sensory deficits Discharge Results Labs on day of discharge: Labs from last 24 hours 02/25/17 02/25/17 02/24/17 11:40 07:43 20:35 POC Glucose 233 H 200 H 251 H 02/24/17 15:13 POC Glucose 295 H DS: Provider Date of admission: 02/22/17 12:24 Primary care physician: . No PCP Attending physician on admission: Michael Guerra MD Consults: 02/22/17 12:43 Consult to Physician [CONS] Routine Comment: Consulting Provider: Severiano Heller Jr. When should Consulting Provider be notified: Now Date Notified: 02/22/17 Time Notified: 17:33 Consult Notification Comment: Dr. Heller (composition teacher) notified 02/23/17 07:24 Consult to Physical Therapy [CONS] Routine Reason for Physical Therapy: Evaluate and Treat Consult Comment: tdwb- advance 25% on rt 02/23/17 12:33 Consult to Occupational Therapy [CONS] Routine Reason for Occupational Therapy: Evaluate and Treat Consult Comment: Evaluate and Treat for Swing Bed placement 02/23/17 13:55 Consult to Case Mgmt/Social Srvs [CONS] Routine Reason for Case Mgmt/Social Srvs: Rehab Swingbed/SNF/Jail Home Health Discharging clinician: Lyudmila Bangura MD
== END 2017-02-25 14:57 | disposition swing bed (61) | DRG 536 ==
LOC: EDBD → EDUNIT# → N.ED 09:46 → N.EDINP 12:24 → SUATTDRO 12:24 → N.3E 13:45
PROVIDERS: ADMIT Internal Medicine Geriatric Medicine; ATTEND Hospitalist

== ENCOUNTER 2018-02-22 13:14 | Inpatient (IN) ==
[2018-02-22] MEDS ORDERED: GLUCAGON 1 MG VIAL IM PRN (13:19)
[2018-02-22] MEDS ORDERED: ONDANSETRON 4 MG/2 ML VIAL IV PRN (13:19)
[2018-02-22] MEDS ORDERED: ACETAMINOPHEN 325 MG TABLET PO PRN (13:19)
[2018-02-22] MEDS ORDERED: DEXTROSE 50% 25 GM/50 ML VIAL IV PRN (13:19)
[2018-02-22 16:04] LABS: Basophils % 0.5 % (0.0-0.8); Eosinophils # 0.2 10*3/uL (0.0-0.87); Eosinophils % 2.4 % (0.00-10.9); Hemoglobin 13.1 GM/DL (14.0-18.0); Immature Granulocytes % 0.4 %; Immature Granulocytes Absolute 0.03 #; Lymphocytes # 1.7 10*3/uL (1.4-4.0); Lymphocytes % 20.3 % (21.2-54.2); Mean Corpuscular HGB Conc 33.6 GM/DL (32-36); Mean Corpuscular Hemoglobin 33 PG (27-34); Mean Corpuscular Volume 98.2 FL (87-102); Mean Platelet Volume 11.9 FL (9.6-12.0); Monocytes % 11.9 % (1.7-12.7); Neutrophils # 5.3 10*3/uL (1.4-7.4); Neutrophils % 64.5 % (38.7-73.9); Platelet Count 93 T/CUMM (130-400); Red Blood Count 3.97 MC/CUMM (3.8-5.5); Red Cell Distribution Width 14.4 % (9.3-17.3); White Blood Count 8.2 T/CUMM (4-12)
[2018-02-22 16:25] LABS: Albumin 2.6 G/DL (3.4-5.0); Bilirubin,Total 1.9 MG/DL (0.2-1.0); Calcium 8.2 MG/DL (8.5-10.1); Osmolality,Calculated 282.5 MOS/KG (273-304); Potassium 4.2 MMOL/L (3.5-5.1); Total Protein 6.7 G/DL (6.4-8.3)
[2018-02-22] MEDS: SODIUM CHLORIDE 0.9% 1,000 ML IV SCH (16:37)
[2018-02-22] MEDS: INSULIN LISPRO 100 UNIT/ML SUBCUT SCH ×2 (16:37→21:19)
[2018-02-22] MEDS: DOCUSATE SODIUM 100 MG CAPSULE PO SCH (20:39)
[2018-02-22] MEDS: KETOROLAC 30 MG/1 ML VIAL IV SCH (20:43)
[2018-02-22] MEDS ORDERED: ENOXAPARIN 30 MG/0.3 ML SYRINGE SUBCUT SCH (21:00)
[2018-02-22 21:11] LABS: Apearance,Urine CLEAR (Clear); Bacteria,Urine Occasional /HPF (Few); Bilirubin,Urine Negative (Negative); Blood, Urine Large mg/dL (Negative); Glucose,Urine (UA) Negative (Negative); Ketones,Urine Negative (Negative); Mucus,Urine Occasional /LPF (Occasional); Nitrite,Urine Negative (Negative); Protein,Urine Negative; RBC,Urine 319 /HPF (0-4); Squamous Epithelial Cell,Urine Occasional /HPF (0-10); Urine Color Yellow (Yellow); Urine Specific Gravity 1.013 (1.001-1.035); WBC,Urine 3 /HPF (0-6)
[2018-02-23] MEDS: SODIUM CHLORIDE 0.9% 1,000 ML IV SCH ×2 (05:34→21:21)
[2018-02-23] MEDS ORDERED: METOPROLOL SUCCINATE XL 25 MG TABLET PO PRN (06:24)
[2018-02-23] MEDS ORDERED: cefTRIAXone 2,000 MG in SYRINGE 1 EACH IV ONE (08:00)
[2018-02-23] MEDS: INSULIN LISPRO 100 UNIT/ML SUBCUT SCH ×4 (08:27→21:21)
[2018-02-23] MEDS: INSULIN REGULAR 100 UNIT/ML SUBCUT SCH ×4 (08:28→21:21)
[2018-02-23] MEDS ORDERED: cefTRIAXone 1,000 MG in SODIUM CHLORIDE 0.9% 100 ML IV SCH (09:00)
[2018-02-23] MEDS ORDERED: MEMANTINE 10 MG TABLET PO SCH (09:00)
[2018-02-23] MEDS: PANTOPRAZOLE 40 MG TABLET PO SCH (09:22)
[2018-02-23] MEDS: DONEPEZIL 10 MG TABLET PO SCH ×2 (09:23→21:20)
[2018-02-23] MEDS: DOCUSATE SODIUM 100 MG CAPSULE PO SCH ×2 (09:23→21:20)
[2018-02-23] MEDS: CARBIDOPA/LEVODOPA 25-100 MG TABLET PO SCH ×3 (09:23→21:20)
[2018-02-23] MEDS: INSULIN NPH/REGULAR 70/30 100 UNIT/ML SUBCUT SCH ×2 (09:23→16:09)
[2018-02-23] MEDS: MULTIVITAMIN (CENTRUM) TABLET PO SCH (09:23)
[2018-02-23] MEDS: KETOROLAC 30 MG/1 ML VIAL IV SCH (09:24)
[2018-02-23] MEDS: AZITHROMYCIN INJ 500 MG in SODIUM CHLORIDE 0.9% 250 ML IV SCH (10:07)
[2018-02-23] MEDS: ZINC OXIDE PASTE 113 GM TUBE TOP SCH ×2 (16:10→21:20)
[2018-02-23] MEDS: traZODone 50 MG TABLET PO SCH (21:20)
[2018-02-23] MEDS: MEMANTINE 10 MG TABLET PO SCH (21:20)
[2018-02-23] MEDS: ENOXAPARIN 40 MG/0.4 ML SYRINGE SUBCUT SCH (21:20)
[2018-02-24] MEDS: KETOROLAC 15 MG/1 ML VIAL IV SCH ×4 (01:43→18:42)
[2018-02-24 07:12] LABS: Basophils % 0.7 % (0.0-0.8); Eosinophils # 0.3 10*3/uL (0.0-0.87); Eosinophils % 4.8 % (0.00-10.9); Hematocrit 32.8 VOL% (42.0-52.0); Hemoglobin 10.6 GM/DL (14.0-18.0); Immature Granulocytes % 0.3 %; Immature Granulocytes Absolute 0.02 #; Lymphocytes # 1.6 10*3/uL (1.4-4.0); Lymphocytes % 26.2 % (21.2-54.2); Mean Corpuscular HGB Conc 32.3 GM/DL (32-36); Mean Corpuscular Hemoglobin 32 PG (27-34); Mean Corpuscular Volume 98.5 FL (87-102); Mean Platelet Volume 11.8 FL (9.6-12.0); Monocytes # 0.7 10*3/uL (0.11-0.8); Neutrophils # 3.5 10*3/uL (1.4-7.4); Red Blood Count 3.33 MC/CUMM (3.8-5.5); Red Cell Distribution Width 14.6 % (9.3-17.3); White Blood Count 6.1 T/CUMM (4-12)
[2018-02-24] MEDS ORDERED: TUBERCULIN SKIN TEST 0.1 ML SYRINGE INTRADERM ONE (07:25)
[2018-02-24 07:39] LABS: Albumin 2.1 G/DL (3.4-5.0); Bilirubin,Total 1.7 MG/DL (0.2-1.0); Calcium 7.7 MG/DL (8.5-10.1); Osmolality,Calculated 286.7 MOS/KG (273-304); Potassium 3.9 MMOL/L (3.5-5.1); Total Protein 5.3 G/DL (6.4-8.3)
[2018-02-24 07:59] LABS: Platelet Count 76 T/CUMM (130-400)
[2018-02-24] MEDS: INSULIN REGULAR 100 UNIT/ML SUBCUT SCH ×4 (08:11→21:20)
[2018-02-24] MEDS: INSULIN LISPRO 100 UNIT/ML SUBCUT SCH ×4 (08:11→21:20)
[2018-02-24] MEDS: DONEPEZIL 10 MG TABLET PO SCH ×2 (09:48→21:19)
[2018-02-24] MEDS: MULTIVITAMIN (CENTRUM) TABLET PO SCH (09:49)
[2018-02-24] MEDS: PANTOPRAZOLE 40 MG TABLET PO SCH (09:49)
[2018-02-24] MEDS: DOCUSATE SODIUM 100 MG CAPSULE PO SCH ×2 (09:49→21:19)
[2018-02-24] MEDS: CARBIDOPA/LEVODOPA 25-100 MG TABLET PO SCH ×3 (09:49→21:19)
[2018-02-24] MEDS: MEMANTINE 10 MG TABLET PO SCH ×2 (09:50→21:21)
[2018-02-24] MEDS: INSULIN NPH/REGULAR 70/30 100 UNIT/ML SUBCUT SCH ×2 (09:50→17:32)
[2018-02-24] MEDS: cefTRIAXone 1,000 MG in SYRINGE 1 EACH IV SCH (09:54)
[2018-02-24] MEDS: ZINC OXIDE PASTE 113 GM TUBE TOP SCH ×2 (09:57→21:20)
[2018-02-24] MEDS: AZITHROMYCIN INJ 500 MG in SODIUM CHLORIDE 0.9% 250 ML IV SCH (09:58)
[2018-02-24] MEDS: SODIUM CHLORIDE 0.9% 1,000 ML IV SCH (14:32)
[2018-02-24] MEDS: traZODone 50 MG TABLET PO SCH (21:19)
[2018-02-24] MEDS: ENOXAPARIN 40 MG/0.4 ML SYRINGE SUBCUT SCH (21:20)
[2018-02-25] MEDS: SODIUM CHLORIDE 0.9% 1,000 ML IV SCH ×3 (00:39→20:38)
[2018-02-25] MEDS: KETOROLAC 15 MG/1 ML VIAL IV SCH ×4 (01:35→18:36)
[2018-02-25] MEDS: INSULIN LISPRO 100 UNIT/ML SUBCUT SCH ×4 (08:46→22:33)
[2018-02-25] MEDS: CARBIDOPA/LEVODOPA 25-100 MG TABLET PO SCH ×3 (09:18→21:09)
[2018-02-25] MEDS: FAMOTIDINE 20 MG TABLET PO SCH (09:18)
[2018-02-25] MEDS: DOCUSATE SODIUM 100 MG CAPSULE PO SCH ×2 (09:18→21:09)
[2018-02-25] MEDS: DONEPEZIL 10 MG TABLET PO SCH ×2 (09:18→21:09)
[2018-02-25] MEDS: MULTIVITAMIN (CENTRUM) TABLET PO SCH (09:18)
[2018-02-25] MEDS: INSULIN NPH/REGULAR 70/30 100 UNIT/ML SUBCUT SCH ×2 (09:20→17:39)
[2018-02-25] MEDS: cefTRIAXone 1,000 MG in SYRINGE 1 EACH IV SCH (09:21)
[2018-02-25] MEDS: MEMANTINE 10 MG TABLET PO SCH ×2 (09:21→22:33)
[2018-02-25] MEDS: AZITHROMYCIN INJ 500 MG in SODIUM CHLORIDE 0.9% 250 ML IV SCH (09:23)
[2018-02-25] MEDS: ZINC OXIDE PASTE 113 GM TUBE TOP SCH ×2 (09:24→22:33)
[2018-02-25] MEDS ORDERED: PSYLLIUM POWDER 3.7 GM/PACK PO PRN (14:43)
[2018-02-25] MEDS ORDERED: PSYLLIUM POWDER 3.7 GM/PACK PO ONE (14:44)
[2018-02-25] MEDS: ENOXAPARIN 40 MG/0.4 ML SYRINGE SUBCUT SCH (21:09)
[2018-02-25] MEDS: traZODone 50 MG TABLET PO SCH (21:09)
[2018-02-26] MEDS: SODIUM CHLORIDE 0.9% 1,000 ML IV SCH (00:33)
[2018-02-26] MEDS: INSULIN LISPRO 100 UNIT/ML SUBCUT SCH ×4 (08:57→21:11)
[2018-02-26] MEDS: INSULIN NPH/REGULAR 70/30 100 UNIT/ML SUBCUT SCH ×2 (09:09→16:50)
[2018-02-26] MEDS: MEMANTINE 10 MG TABLET PO SCH ×2 (09:10→21:10)
[2018-02-26] MEDS: FAMOTIDINE 20 MG TABLET PO SCH (09:10)
[2018-02-26] MEDS: DONEPEZIL 10 MG TABLET PO SCH ×2 (09:10→21:10)
[2018-02-26] MEDS: CARBIDOPA/LEVODOPA 25-100 MG TABLET PO SCH ×3 (09:10→21:10)
[2018-02-26] MEDS: MULTIVITAMIN (CENTRUM) TABLET PO SCH (09:10)
[2018-02-26] MEDS: DOCUSATE SODIUM 100 MG CAPSULE PO SCH ×2 (09:11→21:10)
[2018-02-26] MEDS: ZINC OXIDE PASTE 113 GM TUBE TOP SCH ×2 (09:11→21:11)
[2018-02-26] MEDS: cefTRIAXone 1,000 MG in SYRINGE 1 EACH IV SCH (11:20)
[2018-02-26 18:14] LABS: Basophils % 0.6 % (0.0-0.8); Eosinophils # 0.3 10*3/uL (0.0-0.87); Eosinophils % 5.5 % (0.00-10.9); Hematocrit 34.2 VOL% (42.0-52.0); Hemoglobin 11.4 GM/DL (14.0-18.0); Immature Granulocytes % 0.3 %; Immature Granulocytes Absolute 0.02 #; Lymphocytes # 1.3 10*3/uL (1.4-4.0); Lymphocytes % 20.3 % (21.2-54.2); Mean Corpuscular HGB Conc 33.3 GM/DL (32-36); Mean Corpuscular Hemoglobin 32 PG (27-34); Mean Corpuscular Volume 96.9 FL (87-102); Mean Platelet Volume 12.3 FL (9.6-12.0); Monocytes # 0.8 10*3/uL (0.11-0.8); Monocytes % 12.4 % (1.7-12.7); Neutrophils # 3.8 10*3/uL (1.4-7.4); Neutrophils % 60.9 % (38.7-73.9); Red Blood Count 3.53 MC/CUMM (3.8-5.5); White Blood Count 6.2 T/CUMM (4-12)
[2018-02-26 18:19] LABS: Platelet Count 74 T/CUMM (130-400)
[2018-02-26 18:28] LABS: Calcium 7.8 MG/DL (8.5-10.1); Potassium 3.9 MMOL/L (3.5-5.1)
[2018-02-26] MEDS: traZODone 50 MG TABLET PO SCH (21:09)
[2018-02-26] MEDS: ENOXAPARIN 40 MG/0.4 ML SYRINGE SUBCUT SCH (21:10)
[2018-02-26] MEDS: QUEtiapine 25 MG TABLET PO SCH (21:10)
[2018-02-27 04:23] LABS: Basophils % 0.7 % (0.0-0.8); Eosinophils # 0.4 10*3/uL (0.0-0.87); Eosinophils % 5.9 % (0.00-10.9); Hematocrit 31.1 VOL% (42.0-52.0); Hemoglobin 10.2 GM/DL (14.0-18.0); Immature Granulocytes % 0.2 %; Immature Granulocytes Absolute 0.01 #; Lymphocytes # 1.8 10*3/uL (1.4-4.0); Lymphocytes % 29.6 % (21.2-54.2); Mean Corpuscular HGB Conc 32.8 GM/DL (32-36); Mean Corpuscular Hemoglobin 33 PG (27-34); Mean Platelet Volume 12.1 FL (9.6-12.0); Monocytes # 0.8 10*3/uL (0.11-0.8); Monocytes % 13.6 % (1.7-12.7); Neutrophils # 3.1 10*3/uL (1.4-7.4); Red Blood Count 3.11 MC/CUMM (3.8-5.5); Red Cell Distribution Width 14.7 % (9.3-17.3); White Blood Count 6.1 T/CUMM (4-12)
[2018-02-27 04:42] LABS: Platelet Count 69 T/CUMM (130-400)
[2018-02-27 04:57] LABS: Calcium 7.9 MG/DL (8.5-10.1); Osmolality,Calculated 282.7 MOS/KG (273-304); Potassium 3.6 MMOL/L (3.5-5.1)
[2018-02-27 05:15] LABS: Hypochromasia 1+; Ovalocytes Slight; Platelet Estimate Decreased
[2018-02-27] MEDS: INSULIN LISPRO 100 UNIT/ML SUBCUT SCH ×4 (08:57→20:36)
[2018-02-27] MEDS: INSULIN NPH/REGULAR 70/30 100 UNIT/ML SUBCUT SCH ×2 (08:58→17:09)
[2018-02-27] MEDS: MULTIVITAMIN (CENTRUM) TABLET PO SCH (08:59)
[2018-02-27] MEDS: ZINC OXIDE PASTE 113 GM TUBE TOP SCH ×2 (08:59→20:37)
[2018-02-27] MEDS: CARBIDOPA/LEVODOPA 25-100 MG TABLET PO SCH ×3 (08:59→20:35)
[2018-02-27] MEDS: DOCUSATE SODIUM 100 MG CAPSULE PO SCH ×2 (08:59→20:35)
[2018-02-27] MEDS: MEMANTINE 10 MG TABLET PO SCH ×2 (08:59→20:35)
[2018-02-27] MEDS: DONEPEZIL 10 MG TABLET PO SCH ×2 (08:59→20:36)
[2018-02-27] MEDS: FAMOTIDINE 20 MG TABLET PO SCH (08:59)
[2018-02-27] MEDS ORDERED: KETOROLAC 15 MG/1 ML VIAL IM PRN (17:18)
[2018-02-27] MEDS: QUEtiapine 25 MG TABLET PO SCH (20:35)
[2018-02-27] MEDS: traZODone 50 MG TABLET PO SCH (20:35)
[2018-02-28] MEDS: INSULIN LISPRO 100 UNIT/ML SUBCUT SCH ×4 (08:57→20:21)
[2018-02-28] MEDS: FAMOTIDINE 20 MG TABLET PO SCH (09:03)
[2018-02-28] MEDS: DOCUSATE SODIUM 100 MG CAPSULE PO SCH ×2 (09:03→20:20)
[2018-02-28] MEDS: INSULIN NPH/REGULAR 70/30 100 UNIT/ML SUBCUT SCH ×2 (09:03→16:39)
[2018-02-28] MEDS: MULTIVITAMIN (CENTRUM) TABLET PO SCH (09:03)
[2018-02-28] MEDS: MEMANTINE 10 MG TABLET PO SCH ×2 (09:03→20:20)
[2018-02-28] MEDS: CARBIDOPA/LEVODOPA 25-100 MG TABLET PO SCH ×3 (09:03→20:20)
[2018-02-28] MEDS: DONEPEZIL 10 MG TABLET PO SCH ×2 (09:03→20:20)
[2018-02-28] MEDS: ZINC OXIDE PASTE 113 GM TUBE TOP SCH ×2 (09:06→20:21)
[2018-02-28] MEDS ORDERED: ONDANSETRON 4 MG TABLET PO PRN (16:07)
[2018-02-28] MEDS: QUEtiapine 25 MG TABLET PO SCH (20:20)
[2018-02-28] MEDS: traZODone 50 MG TABLET PO SCH (20:20)
[2018-03-01 06:22] LABS: Basophils % 0.5 % (0.0-0.8); Eosinophils # 0.4 10*3/uL (0.0-0.87); Eosinophils % 7.2 % (0.00-10.9); Hematocrit 33.9 VOL% (42.0-52.0); Hemoglobin 10.9 GM/DL (14.0-18.0); Immature Granulocytes % 0.2 %; Immature Granulocytes Absolute 0.01 #; Lymphocytes # 1.6 10*3/uL (1.4-4.0); Lymphocytes % 27.1 % (21.2-54.2); Mean Corpuscular HGB Conc 32.2 GM/DL (32-36); Mean Corpuscular Hemoglobin 32 PG (27-34); Mean Corpuscular Volume 99.7 FL (87-102); Mean Platelet Volume 11.6 FL (9.6-12.0); Monocytes # 0.8 10*3/uL (0.11-0.8); Monocytes % 13.3 % (1.7-12.7); Neutrophils % 51.7 % (38.7-73.9); Platelet Count 77 T/CUMM (130-400); Red Cell Distribution Width 14.6 % (9.3-17.3); White Blood Count 5.7 T/CUMM (4-12)
[2018-03-01 06:43] LABS: Calcium 7.8 MG/DL (8.5-10.1); Potassium 3.7 MMOL/L (3.5-5.1)
[2018-03-01 06:53] LABS: Hypochromasia 1+; Platelet Estimate Decreased
[2018-03-01] MEDS: MEMANTINE 10 MG TABLET PO SCH (08:49)
[2018-03-01] MEDS: INSULIN NPH/REGULAR 70/30 100 UNIT/ML SUBCUT SCH (08:49)
[2018-03-01] MEDS: FAMOTIDINE 20 MG TABLET PO SCH (08:49)
[2018-03-01] MEDS: DONEPEZIL 10 MG TABLET PO SCH (08:49)
[2018-03-01] MEDS: CARBIDOPA/LEVODOPA 25-100 MG TABLET PO SCH (08:49)
[2018-03-01] MEDS: DOCUSATE SODIUM 100 MG CAPSULE PO SCH (08:49)
[2018-03-01] MEDS: MULTIVITAMIN (CENTRUM) TABLET PO SCH (08:49)
[2018-03-01] MEDS: INSULIN LISPRO 100 UNIT/ML SUBCUT SCH (08:49)
[2018-03-01] MEDS: ZINC OXIDE PASTE 113 GM TUBE TOP SCH (08:50)
[2018-03-01 11:56] VITALS: BP 143/80
[2018-03-01] MEDS ORDERED: INSULIN NPH/REGULAR 70/30 100 UNIT/ML SUBCUT SCH (17:00)
== END 2018-03-01 13:10 | disposition home health service (06) | DRG 200 ==
LOC: N.2E 15:19
PROVIDERS: ADMIT Family Medicine; ATTEND Family Medicine